=== PATIENT | male | born 1990 | race African-American/Black ===

== ENCOUNTER 2017-08-27 12:50 | Emergency (ER) | payer SELFPAY ==
[~2017-08-27] VITALS: Ht 193 cm; Wt 75.0 kg
[2017-08-27 13:06] VITALS: BP 124/73
[2017-08-27] MEDS ORDERED: CEFTRIAXONE 250 MG ONE (13:51)
[2017-08-27] MEDS ORDERED: AZITHROMYCIN 250 MG TABLET ONE (13:52)
[2017-08-27] MEDS ORDERED: AZITHROMYCIN 500 MG TABLET PO ONE (14:00)
[2017-08-27] MEDS ORDERED: CEFTRIAXONE 250 MG IM ONE (14:00)
[2017-08-27 15:16] LABS: MICROSCOPIC INDICATED
[2017-08-27 15:25] LABS: CULTURE INDICATED? YES
== END 2017-08-27 15:20 | disposition home or self-care (01) ==
LOC: ED 15:00
DX: N34.2 Other urethritis (principal)
CPT/HCPCS: 81001; 87086; 87491; 87591; 96372; 99284; J0696

== ENCOUNTER 2018-03-30 18:21 | Emergency (ER) | payer OTHER ==
[~2018-03-30] VITALS: Ht 193 cm; Wt 78.0 kg
[2018-03-30 18:31] VITALS: BP 137/83
[2018-03-30] MEDS ORDERED: AZITHROMYCIN 500 MG TABLET ONE (18:49)
[2018-03-30] MEDS ORDERED: CEFTRIAXONE 250 MG ONE (18:49)
[2018-03-30] MEDS ORDERED: CEFTRIAXONE 250 MG IM ONE (19:00)
[2018-03-30] MEDS ORDERED: AZITHROMYCIN 500 MG TABLET PO ONE (19:00)
== END 2018-03-30 19:27 | disposition home or self-care (01) ==
LOC: ED 19:15
DX: N34.1 Nonspecific urethritis (principal)
CPT/HCPCS: 96372; 99283; J0696

== ENCOUNTER 2018-05-03 10:37 | Emergency (ER) | payer OTHER ==
[~2018-05-03] VITALS: Ht 193 cm; Wt 78.0 kg
[2018-05-03 10:38] VITALS: BP 139/74
[2018-05-03] MEDS ORDERED: CEFTRIAXONE 250 MG IM ONE (11:00)
[2018-05-03] MEDS ORDERED: AZITHROMYCIN 500 MG TABLET PO ONE (11:00)
[2018-05-03] MEDS ORDERED: AZITHROMYCIN 250 MG TABLET ONE (11:04)
[2018-05-03] MEDS ORDERED: CEFTRIAXONE 250 MG ONE (11:04)
== END 2018-05-03 11:28 | disposition left against medical advice (07) ==
LOC: ED 11:05
DX: N34.1 Nonspecific urethritis (principal)
CPT/HCPCS: 96372; 99283; J0696

== ENCOUNTER 2018-10-22 16:01 | Emergency (ER) | payer MEDICAID ==
[~2018-10-22] VITALS: Ht 193 cm; Wt 78.0 kg
[2018-10-22 16:06] VITALS: BP 141/87
[2018-10-22] MEDS ORDERED: LIDOCAINE-MPF 1%, 2ML ONE (16:26)
[2018-10-22] MEDS ORDERED: AZITHROMYCIN 500 MG TABLET ONE (16:26)
[2018-10-22] MEDS ORDERED: CEFTRIAXONE 250 MG ONE (16:26)
[2018-10-22] MEDS ORDERED: CEFTRIAXONE 250 MG IM ONE (16:30)
[2018-10-22] MEDS ORDERED: AZITHROMYCIN 500 MG TABLET PO ONE (16:30)
[2018-10-22 16:42] LABS: CULTURE INDICATED? YES; MICROSCOPIC INDICATED
== END 2018-10-22 17:13 | disposition home or self-care (01) ==
LOC: ED 17:05
DX: R30.0 Dysuria (principal); F17.200 Nicotine dependence, unspecified, uncomplicated
CPT/HCPCS: 81001; 87086; 87491; 87591; 96372; 99283; J0696

== ENCOUNTER 2018-12-20 13:44 | Emergency (ER) | payer MEDICAID ==
[~2018-12-20] VITALS: Ht 182.9 cm; Wt 79.4 kg
[2018-12-20 13:52] VITALS: BP 135/76
[2018-12-20] MEDS ORDERED: CEFTRIAXONE 250 MG IM ONE (14:00)
[2018-12-20] MEDS ORDERED: AZITHROMYCIN 500 MG TABLET PO ONE (14:00)
[2018-12-20] MEDS ORDERED: LIDOCAINE-MPF 1%, 5ML ONE (14:22)
[2018-12-20] MEDS ORDERED: CEFTRIAXONE 250 MG ONE (14:22)
[2018-12-20] MEDS ORDERED: AZITHROMYCIN 500 MG TABLET ONE (14:22)
== END 2018-12-20 15:02 | disposition home or self-care (01) ==
LOC: ED 14:50
DX: A56.01 Chlamydial cystitis and urethritis (principal); F17.200 Nicotine dependence, unspecified, uncomplicated
CPT/HCPCS: 87491; 87591; 96372; 99283; J0696